=== PATIENT | female | born 1970 | race Hispanic/Latino ===

== ENCOUNTER 2018-01-01 10:23 | Outpatient (CLI) | payer SELFPAY ==
--- NOTE | 2018-01-07 14:22 | MMO ---
BILATERAL SCREENING MAMMOGRAM: Date: 01/01/18 INDICATION: Annual exam. COMPARISON: Prior exam dated 03/23/15. FINDINGS: Interpretation of this exam was assisted with computer-aided detection. There are scattered fibroglandular elements bilaterally. There are benign-appearing calcifications within the left breast. No suspicious mass, cluster of microcalcifications, or area of architectural distortion is evident. IMPRESSION: BIRADS 2: Benign Finding(s) Recommend routine annual mammographic screening. POS: VERONICA
== END 2018-01-01 10:24 | disposition home or self-care (01) ==
LOC: SCSRAD 10:23 → SCSMAMMO 10:24
PROVIDERS: ATTEND Family Medicine
DX: Z12.31 Encounter for screening mammogram for malignant neoplasm of breast (principal)
CPT/HCPCS: 77067

== ENCOUNTER 2019-10-14 09:25 | Outpatient (CLI) | payer OTHER ==
--- NOTE | 2019-10-14 10:22 | ULT ---
Sonogram abdomen complete HISTORY: Upper abdomen pain. FINDINGS: The gallbladder is surgically absent. Common duct is 0.3 cm. Liver unremarkable without foc al mass or intrahepatic biliary dilatation. No free fluid. The spleen, kidneys, and visualized portions of abdominal aorta, IVC, and pancreas are unremarkable. IMPRESSION: Status post cholecystectomy. No abnormalities demonstrated.
== END 2019-10-14 09:26 | disposition home or self-care (01) ==
LOC: ULT 09:25
PROVIDERS: ATTEND Family Medicine
DX: R10.9 Unspecified abdominal pain (principal); Z90.49 Acquired absence of other specified parts of digestive tract
CPT/HCPCS: 93975